=== PATIENT | female | born 1990 | race Caucasian/White ===

== ENCOUNTER 2020-01-06 10:11 | Outpatient (CLI) | payer MEDICAID ==
--- NOTE | 2020-01-06 11:36 | XRAY Report ---
Reason: LEFT FOOT PAIN Procedure Date: 01/06/2020 Accession Number: [id number] / [id number] Procedure: WCP - Foot 3 View LT CPT Code: Final Report FULL RESULT: PROCEDURE: Foot 3 View LT INDICATIONS: LEFT FOOT PAIN TECHNIQUE: 3 views of the foot were acquired. COMPARISON: None FINDINGS: Bones: No fractures or dislocations, but there is mild metatarsus primus varus and slight hallux valgus morphology of the first ray. Mild bunion formation at the medial first metatarsal head is incidentally noted.. No suspicious bony lesions. Soft tissues: No tibiotalar joint effusion. Achilles tendon appears normal. IMPRESSION: No acute disease, no trauma found. Mild podiatry related morphologic findings are present as discussed with mild bunion formation at the medial first metatarsal head. Reviewed by: Lukas Ivory MD on 01/06/2020 11:34 AM PDT Approved by: Lukas Ivory MD on 01/06/2020 11:34 AM PDT Station ID: [id number]
== END 2020-01-06 23:59 | disposition home or self-care (01) ==
LOC: DI.WCP 10:11
PROVIDERS: ATTEND Family Medicine
DX: M21.612 Bunion of left foot (principal); M20.12 Hallux valgus (acquired), left foot

== ENCOUNTER 2020-02-24 07:00 | Outpatient (CLI) | payer MEDICAID ==
[2020-02-24 16:21] LABS: MUDS CUTOFF CONCENTRATIONS CUTOFF CONC BELOW:
[2020-02-24 16:39] LABS: AMPHETAMINE SCREEN,URINE NEGATIVE (NEGATIVE); BENZODIAZEPINES SCREEN, URINE NEGATIVE (NEGATIVE); COCAINE SCREEN URINE NEGATIVE (NEGATIVE); METHADONE SCREEN, URINE NEGATIVE (NEGATIVE); METHAMPHETAMINES SCREEN, URINE NEGATIVE (NEGATIVE); OPIATE SCREEN, URINE NEGATIVE (NEGATIVE); OXYCODONE SCREEN, URINE NEGATIVE (NEGATIVE); PROPOXYPHENE SCREEN, URINE NEGATIVE (NEGATIVE); TRICYCLIC ANTIDEPRESSANT,URINE NEGATIVE (NEGATIVE)
== END 2020-02-24 07:01 | disposition home or self-care (01) ==
LOC: LAB.R 07:00
PROVIDERS: ATTEND Nurse Practitioner Obstetrics & Gynecology
DX: Z32.01 Encounter for pregnancy test, result positive (principal)
CPT/HCPCS: 80306; 80349; 81599

== ENCOUNTER 2020-03-13 08:16 | Outpatient (CLI) | payer MEDICAID ==
--- NOTE | 2020-03-13 12:16 | Ultrasound Report ---
PROCEDURE: OB First Trimester INDICATIONS: TEST POSITIVE OUTSIDE/PRIOR DATING DATA: Last menstrual period (LMP): 01/20/2020. LMP-based estimated date of delivery (KYLER): 10/26/2020. First dating scan (date and location): 03/13/2020. Estimated date of delivery (KYLER) from first dating scan: 10/24/2020. TECHNIQUE: Real-time scanning was performed of the fetus and maternal pelvic organs, with image documentation. COMPARISON: None available. FINDINGS: Embryo: Single intrauterine gestational sac is present. There is a pole with crown-rump length of 1.46 cm corresponding to an estimated gestational age of 7 weeks 6 days. heart rate is 162 bpm. A yolk sac is also present. Measurement variability in dating: +/- 4 weeks by LMP, +/- 7 days by mean sac diameter (use before 6 weeks gestation if crown-rump length not able to be measured), +/- 5 days by crown-rump length (6-12 weeks gestation). Maternal organs: The right ovary measures 2.9 x 2.8 x 2.3 cm. The left ovary measures 2.3 x 2.3 x 1.7 cm. A 1.9 cm corpus luteum follicle is present in the right ovary. Limited images through the kidney s demonstrate no hydronephrosis. IMPRESSION: Single living intrauterine . [place]-rump length measures 1.46 cm corresponding to an estimate d gestational age of 7 weeks 6 days. heart rate present at 162 bpm. Reviewed by: Jose Enrique Byrd on 03/13/2020 11:15 AM LUCAS Approved by: Jose Enrique Byrd on 03/13/2020 11:15 AM LUCAS Station ID: [id number]
== END 2020-03-13 08:17 | disposition home or self-care (01) ==
LOC: DI 08:16
PROVIDERS: ATTEND Nurse Practitioner Obstetrics & Gynecology
DX: Z32.01 Encounter for pregnancy test, result positive (principal)
CPT/HCPCS: 76801

== ENCOUNTER 2020-04-25 09:32 | Outpatient (CLI) | payer MEDICAID ==
[2020-04-25 09:51] LABS: MUDS CUTOFF CONCENTRATIONS CUTOFF CONC BELOW:
[2020-04-25 09:52] LABS: BILIRUBIN,URINE NEGATIVE (NEGATIVE); GLUCOSE, URINE (UA) NEGATIVE (NEGATIVE); KETONES,URINE (UA) NEGATIVE (NEGATIVE); LEUKOCYTE ESTERASE, URINE NEGATIVE (NEGATIVE); NITRITE,URINE NEGATIVE (NEGATIVE); OCCULT BLOOD,URINE NEGATIVE (NEGATIVE); PROTEIN,URINE NEGATIVE (NEGATIVE); UROBILINOGEN,URINE 0.2 (NORMAL) E.U./dL (NORMAL)
[2020-04-25 09:54] LABS: CLARITY,URINE HAZY (CLEAR)
[2020-04-25 09:56] LABS: BASOPHILS % (AUTO) 0.2 %; EOSINOPHILS % (AUTO) 0.2 %; HGB - HEMOGLOBIN 14.1 g/dL (12.0-16.0); LYMPHOCYTES # (AUTO) 1.4 10^3/uL (1.5-3.5); LYMPHOCYTES % (AUTO) 11.3 %; MEAN CORPUSCULAR HEMOGLOBIN 33.1 pg (27.0-31.0); MEAN CORPUSCULAR HGB CONC 34.6 g/dL (32.0-36.0); MEAN CORPUSCULAR VOLUME 95.5 fL (81.0-99.0); MONOCYTES # (AUTO) 0.6 10^3/uL (0.0-1.0); MONOCYTES % (AUTO) 4.6 %; NEUTROPHILS # (AUTO) 10.5 10^3/uL (1.5-6.6); NEUTROPHILS % (AUTO) 83.2 %; PLT - PLATELET COUNT 229 10^3/uL (130-450); RED BLOOD COUNT 4.26 10^6/uL (4.20-5.40); RED CELL DISTRIBUTION WIDTH 11.9 % (12.0-15.0); WHITE BLOOD COUNT 12.7 x10^3/uL (4.8-10.8)
[2020-04-25 10:00] LABS: BACTERIA,URINE Rare /HPF (None Seen); RBC,URINE None Seen /HPF (0-5); SQUAMOUS EPITHELIAL CELL,UR MANY Squamous (<= Few)
[2020-04-25 10:02] LABS: AMPHETAMINE SCREEN,URINE NEGATIVE (NEGATIVE); BENZODIAZEPINES SCREEN, URINE NEGATIVE (NEGATIVE); COCAINE SCREEN URINE NEGATIVE (NEGATIVE); METHADONE SCREEN, URINE NEGATIVE (NEGATIVE); METHAMPHETAMINES SCREEN, URINE NEGATIVE (NEGATIVE); OPIATE SCREEN, URINE NEGATIVE (NEGATIVE); OXYCODONE SCREEN, URINE NEGATIVE (NEGATIVE); PROPOXYPHENE SCREEN, URINE NEGATIVE (NEGATIVE); TRICYCLIC ANTIDEPRESSANT,URINE NEGATIVE (NEGATIVE)
[2020-04-25 10:03] LABS: INR 1.2 (0.8-1.2); PT - PROTHROMBIN TIME 13.6 secs (9.9-12.6)
[2020-04-26 10:11] LABS: HEPATITIS B SURFACE ANTIGEN NON-REACTIVE (NON-REACTIVE)
[2020-04-26 11:12] LABS: HEPATITIS C ANTIBODY NON-REACTIVE (NON-REACTIVE)
[2020-04-26 13:41] LABS: HIV AG/AB 4TH GEN NON-REACTIVE (NON-REACTIVE)
== END 2020-04-25 09:33 | disposition home or self-care (01) ==
LOC: LAB 09:32
PROVIDERS: ATTEND Advanced Practice Midwife
DX: Z34.90 Encounter for supervision of normal pregnancy, unspecified, unspecified trimester (principal)
CPT/HCPCS: 36415; 80306; 81001; 81599; 82746; 85025; 85610; 86592; 86762; 86787; 86803; 86850; 86900; 86901; 87086; 87340; 87389; 87491; 87591

== ENCOUNTER 2020-05-23 09:19 | Outpatient (CLI) | payer MEDICAID | END 2020-05-23 09:20 | disposition home or self-care (01) | LOC: LAB 09:19 | PROVIDERS: ATTEND Advanced Practice Midwife | DX: Z36.0 Encounter for antenatal screening for chromosomal anomalies (principal) | CPT/HCPCS: 36415; 81511; 81599 ==

== ENCOUNTER 2020-06-08 07:51 | Outpatient (CLI) | payer MEDICAID ==
--- NOTE | 2020-06-08 12:09 | Ultrasound Report ---
PROCEDURE: OB Detailed Eval INDICATIONS: SUPERVISION OF OUTSIDE/PRIOR DATING DATA: Last menstrual period (LMP): 01/20/2020. LMP-based estimated date of delivery (KYLER): 10/26/2020. First dating scan (date and location): 03/13/2020. Estimated date of delivery (KYLER) from first dating scan: 10/24/2020. TECHNIQUE: Real-time scanning was performed of the fetus, with image documentation and biometric measurements. Endovaginal scanning: Not performed COMPARISON: 03/13/2020 FINDINGS: General: A single living intrauterine gestation is present. Presentation: Breech Placenta: Placental position is posterior, without previa. Amniotic fluid index: 10.6 cm, normal for gestational age. heart rate: 144 beats per minute. Maternal cervical canal: 4.42 cm long; normal length is 2.5 cm or more. biometrics: Biparietal diameter: 4.3 cm, 19 weeks, 2 days Head circumference: 16.86 cm, 19 weeks, 4 days Abdominal circumference: 15.56 cm, 20 weeks, 5 days Femur length: 3.1 cm, 19 weeks, 5 days Estimated gestational age from initial scan: 20 weeks, 2 days Composite gestational age from present scan: 19 weeks, 6 days Estimated weight and percentile: 334 g, 52.5%. Measurement variability in biometric dating: +/- 10 days from 12-20 weeks gestation, +/- 2 weeks from 20-30 weeks gestation, +/- 3 weeks at 30 weeks gestation or later. Anatomic survey: Neuro: Ventricles are normal at less than 10 mm. Cisterna magna is normal at 3-11 mm. Cerebellum i s normal in size and morphology. Nuchal skin fold: Normal at less than 6 mm between 14 and 20 weeks gestational age. Face: Nose and lips, facial profile are normal. Spine: No evidence for spina bifida. Heart: 4-chambered heart is present, with normal ventricular outflow tracts. Diaphragm: Diaphragm is intact. Stomach: Left-sided stomach is present. Kidneys: No hydronephrosis. Normal is less than 5 mm in 2nd trimester, less than 7 mm in 3rd trimester. Cord: 3 vessel cord has orthotopic insertion. Bladder: Normal in size. Extremities: All 4 extremities are visualized. IMPRESSION: 1. Single live intrauterine with fetus in breech presentation. heart rate is 144 bpm. Normal amount of amniotic fluid. Normal growth. 2. Normal anatomic survey. Reviewed by: Mark Garcias MD on 06/08/2020 12:08 PM PST Approved by: Mark Garcias MD on 06/08/2020 12:08 PM PST Station ID: [id number]
== END 2020-06-08 07:52 | disposition home or self-care (01) ==
LOC: DI 07:51
PROVIDERS: ATTEND Advanced Practice Midwife
DX: Z34.92 Encounter for supervision of normal pregnancy, unspecified, second trimester (principal); Z36.89 Encounter for other specified antenatal screening

== ENCOUNTER 2020-07-26 07:43 | Outpatient (CLI) | payer MEDICAID ==
[2020-07-26 09:12] LABS: HGB - HEMOGLOBIN 12.3 g/dL (12.0-16.0); MEAN CORPUSCULAR HEMOGLOBIN 33.2 pg (27.0-31.0); MEAN CORPUSCULAR HGB CONC 34.7 g/dL (32.0-36.0); MEAN CORPUSCULAR VOLUME 95.4 fL (81.0-99.0); MEAN PLATELET VOLUME 9.2 fL (7.9-10.8); RED BLOOD COUNT 3.71 10^6/uL (4.20-5.40); RED CELL DISTRIBUTION WIDTH 12.1 % (12.0-15.0); WHITE BLOOD COUNT 10.1 x10^3/uL (4.8-10.8)
== END 2020-07-26 07:44 | disposition home or self-care (01) ==
LOC: LAB 07:43
PROVIDERS: ATTEND Advanced Practice Midwife
DX: Z34.90 Encounter for supervision of normal pregnancy, unspecified, unspecified trimester (principal); Z36.89 Encounter for other specified antenatal screening
CPT/HCPCS: 36415; 82950; 85027

== ENCOUNTER 2020-09-28 08:00 | Outpatient (CLI) | payer MEDICAID | END 2020-09-28 23:59 | disposition home or self-care (01) | LOC: LAB.R 08:00 | PROVIDERS: ATTEND Advanced Practice Midwife | DX: Z34.90 Encounter for supervision of normal pregnancy, unspecified, unspecified trimester (principal); Z36.85 Encounter for antenatal screening for Streptococcus B | CPT/HCPCS: 87797 ==

== ENCOUNTER 2020-10-10 07:42 | Inpatient (IN) | payer MEDICAID ==
[2020-10-10 08:12] LABS: RUPTURE OF MEMBRANES PLUS POSITIVE (NEGATIVE)
[2020-10-10] MEDS ORDERED: TRANEXAMIC ACID IN NACL 1,000 MG/100 ML BAG IV PRN (08:42)
[2020-10-10] MEDS ORDERED: LIDOCAINE-MPF 1% 30 ML VIAL ID PRN (08:42)
[2020-10-10] MEDS ORDERED: OXYTOCIN 10 UNIT/ML VIAL IM PRN (08:42)
[2020-10-10] MEDS ORDERED: CARBOPROST TROMETHAMINE 250 MCG/ML AMP IM PRN (08:42)
[2020-10-10] MEDS ORDERED: METHYLERGONOVINE 0.2 MG/ML VIAL IM PRN (08:42)
[2020-10-10] MEDS ORDERED: miSOPROStoL 200 MCG TABLET BC PRN (08:42)
[2020-10-10] MEDS ORDERED: ONDANSETRON 4 MG/2 ML VIAL IVP PRN ×2 (08:42→14:05)
[2020-10-10] MEDS ORDERED: OXYTOCIN/SODIUM CHLORIDE 500 ML IV PRN (08:42)
[2020-10-10] MEDS ORDERED: SODIUM CHLORIDE FLUSH 0.9% 10 ML SYRINGE IVP PRN (08:42)
[2020-10-10] MEDS ORDERED: LACTATED RINGERS 1,000 ML IV SCH (09:00)
[2020-10-10] MEDS ORDERED: SODIUM CHLORIDE FLUSH 0.9% 10 ML SYRINGE IVP SCH (09:00)
--- NOTE | 2020-10-10 09:02 | HISTORY & PHYSICAL EXAMINATION ---
Admit History - Visit Reason Visit Reason: Membranes rupture - : 2 Parity: 1 Premature: 0 Ectopic: 0 : 0 Care: positive: [facility] Risk/History: positive: None Complications This : positive: None Smoking Status: Former smoker - Mother's Labs Mother's Blood Type: positive: B Mother's RH: positive: Positive GBS: positive: Group B Step Negative Rubella Status: positive: Immune Meds/Allgy - Allergies Allergies/Adverse Reactions: Allergies Allergy/AdvReac Type Severity Reaction Status Date / Time keishaaristides mangos Allergy Intermediate Edema Uncoded 08/24/20 11:11 Review of Systems - Constitutional Constitutional: denies: Fever, Chills, Malaise - Eyes Eyes: denies: Blurred vision, Spots in vision, Dipolpia - Cardiovascular Cariovascular: denies: Irregular heart rate, Chest pain, Edema - Gastrointestinal Gastrointestinal: denies: Change in bowel habits, Nausea, Vomiting - Integumentary Integumentary: denies: Rash, Pruritis - Neurological Neurological: denies: Headache Physical - Abdominal Exam Vital Signs: Temp Pulse Resp BP Pulse Ox 36.8 C 61 16 134/66 H 100 10/10/20 08:10 10/10/20 08:10 10/10/20 08:10 10/10/20 08:10 10/10/20 08:10 Contraction Intensity: positive: Mild Uterine Resting Tone: positive: Soft - Monitoring Heart Rate Baseline: 130 Strip Review: positive: Category I - Presentation Presentation: positive: Vertex - Vaginal Exam Membranes: positive: Membranes ruptured Dilation (in cm): 3 Effacement (%): 80 Station: positive: -2 Cervical Position: positive: Posterior - Speculum Exam Speculum Exam Performed: positive: No Findings: positive: Gross leak, Nitrazine Plan for Labor - Plan For Labor I expect patient to be DC'd or transferred within 96 hours.: Yes Plan for Labor: Amna is a 30yo @ 37.5wks gestation by LMP c/w 7.4wk U/S who presents to [facility] with c/o vaginal leakage of fluid which began at 0609 this morning and is clear. She denies vaginal bleeding and reports +FM. Upon arrival she was noted to have grossly ruptured membranes with clear fluid. Nitrizine positive. FHR Category I. She reports mild cramping but nothing consistently uncomfortable. She has been a patient of [facility] through the duration of her which has remained uncomplicated. She will be admitted to [facility] for expectant management. She denies questions or concerns at this time. She is supported by her partner Mehran. Dating Criteria: LMP: KYLER by LMP 10/26/2020 Initial U/S c/w LMP dating Serial exams - agree Medications: PNV; Sertraline 50mg daily; proair PRN Allergies: NKDA; Mangos (moderate) OB Hx: G1: 08/26/2016, @ 40wks, epidural, Male, 7lb9oz G2: current PMHx: Exercise- induced bronchospasm, depression Surgical Hx: [place] teeth extraction (2014) Social Hx: Former smoker, no ETOH or IVDA. Partner Mehran. Family Hx: Thyroid disorder - sister course: Initial U/S: at 7.4wks c/w LMP for KYLER 10/26/2020 B pos/Rubella immune VZV- immune Gentic testing: QUAD- neg FAS: Posterior placenta. AZRA wnl. EFW 52.5%. 3VC Glucola- 119 Flu: declines TDAP 08/03/2020 GBS at 36.0- negative HSV: denies self and partner Breast pump Rx provided MOD: . Desires epidural abilio. FOB: Mehran. Son 3yo Fidel. Girl (she guessed it!) [place] October. Desires elective IOL 10/24/2020 @ 0800. pp contraception: Nexplanon PAP: 02/25/2018-wnl Physical Exam: Normocephalic, atraumatic Heart RRR w/o M/G/R Lungs CTAB Abdomen gravid, soft, nontender EFW 3600g FHR baseline 130, moderate variability, + accels, no decels Contractions palpate mild intermittently with soft resting tone SVE 3/80/-2, posterior. Vertex. Bilateral LE's trace edema Mood is good. Assessment: 30yo @ 37.5wks gestation by LMP c/w 7.4wk U/S Spontaneous rupture of membranes Early labor FHR Category I Plan: Admit to [facility] for active management. Initiate pitocin with titration per protocol. Continuous monitoring Jacuzzi PRN. Nitrous oxide PRN. Epidural per maternal request. Anticipate . Pt verbalized understanding and agrees to above plan. She denies further questions or concerns at this time.
[2020-10-10 09:14] LABS: BASOPHILS % (AUTO) 0.2 %; EOSINOPHILS # (AUTO) 0.1 10^3/uL (0.0-0.7); EOSINOPHILS % (AUTO) 0.4 %; HCT - HEMATOCRIT 35.4 % (37.0-47.0); HGB - HEMOGLOBIN 11.7 g/dL (12.0-16.0); LYMPHOCYTES # (AUTO) 1.4 10^3/uL (1.5-3.5); MEAN CORPUSCULAR HEMOGLOBIN 30.4 pg (27.0-31.0); MEAN CORPUSCULAR HGB CONC 33.1 g/dL (32.0-36.0); MEAN CORPUSCULAR VOLUME 91.9 fL (81.0-99.0); MEAN PLATELET VOLUME 9.9 fL (7.9-10.8); MONOCYTES # (AUTO) 0.6 10^3/uL (0.0-1.0); NEUTROPHILS # (AUTO) 9.4 10^3/uL (1.5-6.6); PLT - PLATELET COUNT 216 10^3/uL (130-450); RED BLOOD COUNT 3.85 10^6/uL (4.20-5.40); RED CELL DISTRIBUTION WIDTH 12.7 % (12.0-15.0); WHITE BLOOD COUNT 11.4 x10^3/uL (4.8-10.8)
[2020-10-10] MEDS: OXYTOCIN/SODIUM CHLORIDE 500 ML IV SCH ×2 (10:39→18:13)
[2020-10-10] MEDS ORDERED: fentaNYL 100 MCG/2 ML VIAL IVP PRN (13:29)
[2020-10-10] MEDS ORDERED: BUPIVACAINE 0.25% PF 10 ML VIAL ONE (13:31)
[2020-10-10] MEDS ORDERED: ROPIVACAINE 0.2% 200 MG/100 ML BAG EP ONE (13:32)
[2020-10-10] MEDS ORDERED: NALOXONE 0.4 MG/ML VIAL IVP PRN (14:05)
[2020-10-10] MEDS ORDERED: diphenhydrAMINE INJ 50 MG/ML VIAL IVP PRN (14:05)
[2020-10-10] MEDS ORDERED: ePHEDrine 50 MG/ML VIAL IVP PRN (14:05)
[2020-10-10] MEDS ORDERED: METOCLOPRAMIDE 10 MG/2 ML VIAL IVP PRN (14:05)
[2020-10-10] MEDS ORDERED: NALBUPHINE 10 MG/ML AMP IVP PRN (14:05)
[2020-10-10] MEDS ORDERED: ROPIVACAINE 0.2% 200 MG/100 ML BAG EP PRN (14:05)
--- NOTE | 2020-10-10 14:05 | ANESTHESIA ---
Pre-Anesthesia VS, & Labs - Diagnosis active labor - Procedure labor epidural Vital Signs: Temp Pulse Resp BP Pulse Ox 36.6 C 59 L 18 121/76 100 10/10/20 10:07 10/10/20 10:07 10/10/20 10:07 10/10/20 10:07 10/10/20 08:10 Height: 5 ft 5 in Weight (kg): 90.718 kg Body Mass Index: 33.3 BMI Classification: Obese - NPO >8 hours - Is Patient ?: Yes - Lab Results Current Lab Results: Laboratory Tests 10/10/20 09:05: WBC 11.4 H, RBC 3.85 L, Hgb 11.7 L, Hct 35.4 L, MCV 91.9, MCH 30.4, MCHC 33.1, RDW 12.7, Plt Count 216, MPV 9.9, Neut # (Auto) 9.4 H, Lymph # (Auto) 1.4 L, [place] # (Auto) 0.6, Eos # (Auto) 0.1, Baso # (Auto) 0.0, Absolute Nucleated RBC 0.00, Nucleated RBC % 0.0 Lab results reviewed: Yes Fish Bones: 10/10/20 09:05 Home Medications and Allergies Active Medications Carboprost Tromethamine (Carboprost Tromethamine 250 Mcg/Ml Amp) 250 mcg IM Q15M PRN PRN Reason: Step 4: Hemorrhage protocol Stop: 10/15/20 08:42 Fentanyl (Fentanyl 100 Mcg/2 Ml Vial) 50 mcg IVP Q1HR PRN PRN Reason: PAIN Lactated Ringer's (Lr) 1,000 mls @ 150 mls/hr IV .Q6H40M NEO Last Admin: 10/10/20 10:39 Dose: 125 mls/hr Documented by: Oxytocin/Sodium Chloride (Pitocin/Sodium Chloride) 500 mls @ 999 mls/hr IV PRN PRN; Protocol PRN Reason: POST- HEMORR PREVENTION Stop: 10/15/20 08:42 Tranexamic Acid (Tranexamic 1,000 Mg/100ml-Nacl) 1,000 mg in 100 mls @ 600 mls/hr IV .ONCE PRN PRN Reason: EBL >1200mL and within 3hr Stop: 10/15/20 08:42 Oxytocin/Sodium Chloride (Pitocin/Sodium Chloride) 500 mls @ 1 mls/hr IV TITR NEO; Protocol Last Titration: 10/10/20 12:26 Dose: 4 milliunit/min, 4 mls/hr Documented by: Lidocaine HCl (Lidocaine-Mpf 1% 30 Ml Vial) 30 ml ID .ONCE PRN PRN Reason: PERINEAL REPAIR Stop: 10/15/20 08:42 Methylergonovine Maleate (Methylergonovine 0.2 Mg/Ml Vial) 0.2 mg IM .ONCE PRN PRN Reason: Step 2: Hemorrhage protocol Stop: 10/15/20 08:42 Misoprostol (Misoprostol 200 Mcg Tablet) 800 mcg BC .ONCE PRN PRN Reason: Step 3: Hemorrhage protocol Stop: 10/15/20 08:42 Ondansetron HCl (Ondansetron 4 Mg/2 Ml Vial) 4 mg IVP Q4H PRN PRN Reason: Nausea / Vomiting Oxytocin (Oxytocin 10 Unit/Ml Vial) 10 unit IM .ONCE PRN PRN Reason: Step one: If no IV access Stop: 10/15/20 08:42 Sodium Chloride (Sodium Chloride Flush 0.9% 10 Ml Syringe) 10 ml IVP PRN PRN PRN Reason: NEEDED PER PROVIDER ORDERS Sodium Chloride (Sodium Chloride Flush 0.9% 10 Ml Syringe) 10 ml IVP 0100,0900,1700 [facility] Allergies/Adverse Reactions: Allergies Allergy/AdvReac Type Severity Reaction Status Date / Time lincolnacajocelin mangos Allergy Intermediate Edema Uncoded 08/24/20 11:11 Anes History & Medical History - Anesthetic History Anesthesia Complications: reports: No previous complications Family history of Anesthesia Complications: Denies Family history of Malignant Hyperthermia: Denies - Medical History Cardiovascular: reports: None Pulmonary: reports: None Gastrointestinal: reports: None Urinary: reports: None Smoking Status: Current some day smoker - Obstetrical History : 2 Parity: 1 Events: reports: None Complications: reports: None Exam General: Alert, Oriented x3, Cooperative, No acute distress Plan Anesthesia Type: Epidural Consent for Procedure(s) Verified and Reviewed: Yes Code Status: Attempt Resuscitation ASA classification: 2-Mild systemic disease Is this case an emergency?: No
[2020-10-10] MEDS ORDERED: HYDROCORTISONE 1% CREAM 28 GM TUBE PR PRN (16:04)
[2020-10-10] MEDS ORDERED: WITCH HAZEL/GLYCERIN 1 PAD TOP PRN (16:04)
--- NOTE | 2020-10-10 16:18 | DELIVERY NOTE ---
Delivery Note - Labor Labor: positive: Augmented by oxytocin - Delivery Method Delivery Method: positive: Spontaneous vaginal delivery - Presentation Presentation: positive: Vertex, Compound, SHANE - left occiput anterior - Nuchal Cord Nuchal Cord: positive: None - Amniotic Fluid Description Amniotic Fluid Description: positive: Clear - Episiotomy Type Episiotomy Type: positive: None - Laceration Laceration: positive: None - Delivery Outcome Delivery Outcome: positive: Livebirth - Robeline Robeline: positive: Placed in direct skin contact with mother, Bulb syringe, Stimulated, Warmed, [place] used sex: positive: Female - Cord Cord: positive: 3 vessels - Placenta Placenta: positive: Intact, Spontaneous - Estimated Blood Loss Estimated Blood Loss (in cc): 200 - Post Delivery Events Post Delivery Events: positive: No post delivery events - Delivery Comments (Free Text/Narrative) Delivery Comments (Free Text/Narrative): Labor: This 30yo @ 37.5wks gestation by LMP c/w first trimester ultrasound presented to [facility] on 10/10/2020 with c/o grossly ruptured membranes which occurred at 0609 and was noted to be a large amount of clear fluid. She was intermittently pedro without associated discomfort. SVE 3/80/-2, posterior and vertex. FHR Category I pattern throughout labor. Pitocin initiated for labor augmentation for a maximum infusion rate of 6mU/mL. Normal labor course. Epidural placed per maternal request. Pt progressed to c/c/+2 @ 1531. : Normal of viable female on 10/10/2020 @ 1548. No nuchal cord. Compound right hand. The was placed on maternal abdomen, stimulated, dried, and placed skin to skin. 's 9/9 at 1 and 5 min respectively. Pitocin administered via IV for hemostasis. The umbilical cord was allowed to stop pulsating at which time it was doubly clamped by CNM and cut by FOB. 3VC. Cord blood was obtained. Fundal massage and gentle cord traction applied for active management of the third stage. Placenta delivered spontaneously and intact @ 1551. EBL 200mL. Fourth stage: Uterine fundus firm and there is no excessive bleeding. The perineum, vagina, and cervix were inspected and found to be intact. initiated. Family bonding well. Both mother and baby were left in stable condition.
[2020-10-10] MEDS: ACETAMINOPHEN 500 MG TABLET PO SCH (19:01)
[2020-10-10] MEDS: IBUPROFEN 800 MG TABLET PO SCH (19:02)
[2020-10-10] MEDS: DOCUSATE SODIUM 100 MG CAPSULE PO SCH (21:17)
[2020-10-11] MEDS: IBUPROFEN 800 MG TABLET PO SCH ×3 (01:19→13:39)
[2020-10-11] MEDS: ACETAMINOPHEN 500 MG TABLET PO SCH ×2 (04:11→12:32)
--- NOTE | 2020-10-11 06:29 | PROVIDER PROGRESS NOTE ---
Subjective - Subjective Subjective: S: Bonding well with baby. without difficulty. Bleeding decreased and light. Pain well controlled with oral medications. Urinating without difficulty. Was able to get a little rest last night and is feeling good today. Partner Mehran is supportive at the bedside. O: BP 138/74, T 36.8, HR 60, RR 18 Heart RRR w/o M/G/R, lungs CTAB, abdomen soft and nontender with fundus firm at U, light lochia rubra, bilateral LE's trace edema. A: 30yo -->P2 PPD#1 s/p TSVD viable female infant perineum intact P: Reviewed pp self care and warning s/sx. Pt has emergency contact number. Advised continuation of PNV while . Continue taking ibuprofen and tylenol OTC as needed for pain management. F/u in 1 week for routine pp visit or sooner PRN. Pt verbalized understanding and agrees to above plan. She denies further questions or concerns at this time. Objective - Vital Signs/Intake & Output Vital Signs: Vital Signs x48h Temp Pulse Resp BP Pulse Ox 10/11/20 04:30 36.8 C 60 18 130/74 100 10/11/20 01:00 36.7 C 60 18 132/71 H 100 Intake & Output: Intake & Output 10/08/20 10/09/20 10/10/20 10/11/20 23:59 23:59 23:59 23:59 Intake Total 2049.733 Output Total 1600 Balance 449.733 - Lab Results Fish Bones: 10/10/20 09:05 Other Labs: Lab Results x24hrs 10/10/20 10/10/20 Range/Units 09:05 08:05 WBC 11.4 H (4.8-10.8) x10^3/uL RBC 3.85 L (4.20-5.40) 10^6/uL Hgb 11.7 L (12.0-16.0) g/dL Hct 35.4 L (37.0-47.0) % MCV 91.9 (81.0-99.0) fL MCH 30.4 (27.0-31.0) pg MCHC 33.1 (32.0-36.0) g/dL RDW 12.7 (12.0-15.0) % Plt Count 216 (130-450) 10^3/uL MPV 9.9 (7.9-10.8) fL Neut # (Auto) 9.4 H (1.5-6.6) 10^3/uL Lymph # (Auto) 1.4 L (1.5-3.5) 10^3/uL [place] # (Auto) 0.6 (0.0-1.0) 10^3/uL Eos # (Auto) 0.1 (0.0-0.7) 10^3/uL Baso # (Auto) 0.0 (0.0-0.1) 10^3/uL Absolute Nucleated RBC 0.00 x10^3/uL Nucleated RBC % 0.0 /100WBC Membranes Rupture POSITIVE A (NEGATIVE)
--- NOTE | 2020-10-11 06:45 | Discharge Plan ---
Discharge Plan Problem Reviewed?: Yes Disposition: Home, Self Care Condition: Good Diet: Regular Activity Restrictions: No Restrictions Shower Restrictions: No Driving Restrictions: No Weight Bearing: Full Weight No Smoking: If you smoke, Please STOP! Call for help. Follow-up with: Carolyn Flannery CNM, ARNP [Provider Admit Priv/Credential] -
--- NOTE | 2020-10-11 06:51 | DISCHARGE SUMMARY ---
Discharge Summary Admit Date: 10/10/20 Discharge Date: 10/11/20 Discharging Provider: Carolyn Flannery CNM/EDGARDO Condition at Discharge: Good Discharge Disposition: 01 Home, Self Care - DIAGNOSES Admission Diagnoses: 1. 30yo @ 37.5wks gestation 2. Spontaneous rupture of membranes 3. Early labor 4. GBS neg 5. FHR Category I Discharge Diagnoses with Status of Each Condition: 1. A 30yo s/p TSVD on 10/10/2020 2. Normal recovery 3. - ALLERGIES Allergies/Adverse Reactions: Allergies Allergy/AdvReac Type Severity Reaction Status Date / Time manas rossi Allergy Intermediate Edema Uncoded 08/24/20 11:11 - LABS Result Diagrams: 10/10/20 09:05 - FOLLOW UP Follow Up: Brief History: She is patient of [facility] who presented on 10/10/2020 with complaints of spontaneous rupture of membranes. The patient was noted to 3/80/-2 and Vertex. She was augmented with pitocin. She progressed to spontaneously deliver a viable female infant named Soco Fabian on 10/10/2020 @ 0348. Apgars were 9/9 at 1 and 5 min respectively. EBL 200mL. The patient perineum, vagina, and cervix were inspected and noted to be intact. She has been doing well in her course. She is ambulating and tolerating a regular diet. She is urinating without difficulty and her lochia is normal. Her pain is well controlled with oral medications. She will be discharged home today on day #1 with instructions to continue taking her PNV while and to continue taking ibuprofen and tylenol OTC as needed for pain management. She intends to f/u with myself at [facility] in 1 week for routine visit or sooner PRN. She has been given precautions to call if she has any worsening fevers, chills, abdominal pain, increased bleeding, or foul smelling vaginal lochia.
[2020-10-11] MEDS: DOCUSATE SODIUM 100 MG CAPSULE PO SCH (07:35)
[2020-10-11 16:20] VITALS: BP 120/76
--- NOTE | 2020-10-11 19:21 | Labor Flowsheet ---
Labor Flowsheet Datetime Report Generated by CPN: 10/11/2020 19:21 Datetime: 10/11/2020 07:26 VITAL SIGNS NBP Sys/Juana/Mean (mmHg): 117 : 64 : 76 Pulse: 54 Datetime: 10/10/2020 18:00 Stage of : Recovery Datetime: 10/10/2020 15:51 Temperature (C): 36.7 Stage 2 Comments: Placenta Datetime: 10/10/2020 15:48 Pushing Position: Pushing with Contractions Pushing Progress: Descent with Pushing Datetime: 10/10/2020 15:43 LaborFlag: Labor Datetime: 10/10/2020 15:40 STAGE 2 Pushing: Coached on Pushing; No Urge to Push Datetime: 10/10/2020 15:31 VAGINAL EXAM Dilatation (cm): 10.0 Station: 2 Exam by: AD Datetime: 10/10/2020 15:14 SpO2 (%): 100 Datetime: 10/10/2020 15:00 UTERINE ACTIVITY Monitor Mode: External Frequency (min): 2-3 Quality: Mild Duration (sec): 40-60 Pattern: Normal: <= 5 Contractions in 10 Minutes Resting Tone (Palpate): Relaxed Pitocin Checklist: Uterus Palpates Soft between Contractions ASSESSMENT A Monitor Mode: Telemetry FHR Baseline Rate : 125 FHR Baseline Changes: No Baseline Change Variability: Moderate 6-25 bpm Accelerations: 15X15 Decelerations: None Category: Category I Oxygen Method: Room Air Datetime: 10/10/2020 14:41 MEDICATIONS Pitocin (milliunits): Increased to @ 6mu Datetime: 10/10/2020 14:38 I/O Interventions: [place] Cath Inserted Datetime: 10/10/2020 14:30 Monitor Interventions for UA: [place] Adjusted Datetime: 10/10/2020 14:00 Anesthesia Level Check: T10- Umbilicus Datetime: 10/10/2020 13:42 Epidural Procedure: Test Dose Datetime: 10/10/2020 13:40 PROCEDURE TIME OUT Procedure Verify: Correct Patient Identity; Correct Side and Site are Marked; Accurate Procedure Co nsent Form; Agreement on Procedure to be Done; Correct Patient Position ANESTHESIA Anesthesia Plans: Epidural Epidural Positioning: Sitting Datetime: 10/10/2020 13:35 Analgesics/Sedatives: Fentanyl (mcg) @ 50 Medication Comments: Fentanyl given per anesthesia provider Datetime: 10/10/2020 13:30 Contraction Comments: Pt c/o ctx pain Pain Coping: Requesting Pain Medication or Epidural Datetime: 10/10/2020 13:28 Anesthesia Comments: anesthesia here for epidural Datetime: 10/10/2020 13:06 COMMUNICATION Communication: Report Given to @ Inez Aube, TRAVEL INSURANCE AGENT Communication Comments: Provider notified that patient desires an epidural Datetime: 10/10/2020 13:03 PATIENT CARE IV/Blood Work: IV Bolus Started Datetime: 10/10/2020 13:00 Monitor Interventions for FHR: Ultrasound Adjusted Datetime: 10/10/2020 12:30 PAIN Pain Scale: 3 Pain Presence: Intermittent Pain Type: Cramping Pain Location: Abdomen; Back Datetime: 10/10/2020 12:01 Patient Care Comments: Pt out of jacuzzi Datetime: 10/10/2020 12:00 Comments: Pt is in jacuzzi tub Datetime: 10/10/2020 09:57 Effacement (%): 75 Vaginal Bleeding: None Cervix, Consistency: Soft Cervix, Position: Posterior Datetime: 10/10/2020 09:43 Provider Reviewed Strip: Yes Datetime: 10/10/2020 09:17 Patient Position/Activity: Semi-Fowlers
--- NOTE | 2020-10-14 08:37 | PROCEDURE REPORT ---
- HPI Diagnosis/Indication for NST: Other Current EDU 10/26/20 Gestation 37 Weeks and 5 Days 2 Para 1 Vital Signs Temperature 36.8 C 10/10/20 08:00 Heart Rate 61 10/10/20 08:00 Respiratory Rate 16 10/10/20 08:00 Blood Pressure 134/66 H 10/10/20 08:00 O2 Saturation 100 10/10/20 08:00 Temperature 36.6 C 10/11/20 16:19 Heart Rate 58 L 10/11/20 16:19 Respiratory Rate 18 10/11/20 16:19 Blood Pressure 120/76 10/11/20 16:19 O2 Saturation 99 10/11/20 16:19 - NST Procedure NST Procedure Start Date 10/10/20 Start Time 07:50 Stop Time 08:25 Vibroacoustic Stimulation Used No Patient States Movement Yes - Results and Plan Plan: NST performed 10/10/2020 NST read 10/10/2020 NST reactive. FHR baseline 130s, moderate variability, + accels, no decels
== END 2020-10-11 17:30 | disposition home or self-care (01) | DRG 807 ==
LOC: WFO 07:42 → FBP 07:45 → WFO 08:41 → FBP 08:42
PROVIDERS: ADMIT Nurse Practitioner Obstetrics & Gynecology; ATTEND Nurse Practitioner Obstetrics & Gynecology
PROC: 10E0XZZ Delivery of Products of Conception, External Approach (ICD-10-PCS; principal; 2020-10-10)
DX: O32.6XX0 Maternal care for compound presentation, not applicable or unspecified (principal); Z37.0 Single live birth; Z3A.37 37 weeks gestation of pregnancy; O99.214 Obesity complicating childbirth; E66.9 Obesity, unspecified
CPT/HCPCS: 36415; 59025; 84112; 85025; 99213; A9270; J7120

== ENCOUNTER 2023-05-08 12:33 | Outpatient (CLI) | payer MEDICAID ==
--- NOTE | 2023-05-09 13:09 | Mammography Report ---
BILATERAL DIGITAL DIAGNOSTIC MAMMOGRAM 3D/2D WITH AXILLARY TAIL LATEROMEDIAL: 05/08/2023 CLINICAL: Baseline exam. Palpable left lump in axilla. No prior exams were available for comparison. Both breasts are extremely dense, which lowers the sensitivity of mammography (category d />75% gland ular tissue). No significant masses, calcifications, or other findings are seen in either breast. IMPRESSION: INCOMPLETE: NEEDS ADDITIONAL IMAGING EVALUATION There is no abnormality seen to correspond with the area of clinical concern in the left axilla, jean enrrique, ultrasound is recommended. Based on the Tyrer Cuzick model (a risk assessment model) the patients lifetime risk is 18.8% and he r 10 year risk is 0.8%. According to the ACR, ACS, and NCCN guidelines, an annual breast MRI exam maría elena ng with mammogram is recommended if the patients lifetime risk is 20% or greater. This exam was interpreted at Station ID: [id number]. NOTE: For mammograms, a report in lay terms will be sent to the patient. Approximately 15% of breast malignancies will not be visualized mammographically. In the management of a palpable breast mass, a negative mammogram must not discourage biopsy of a clinically suspicious lesion. Electronically Signed By: Juan Green M.D. lc/:05/08/2023 13:54:46 ACR BI-RADS Category 0: Incomplete 3340F PARENCHYMAL PATTERN: (VD) - The breast(s) demonstrate(s) extremely dense parenchyma, limiting the sen sitivity of mammography. BI-RADS CATEGORY: (0) - 0 Ultrasound [id number] Immediate follow-up LATERALITY: (B)
--- NOTE | 2023-05-09 13:09 | Ultrasound Report ---
LIMITED ULTRASOUND OF LEFT BREAST: 05/08/2023 CLINICAL: Palpable left axilla lump. Comparison is made to exam dated: 05/08/2023 mammogram - [facility]. Color flow ultrasound of the left breast was performed. Coleman scale images of the real-time examinat ion were reviewed. At the first palpable area in the left axilla, possible 1 x 0.1cm complicated, possibly sebaceous, sk in-based cyst noted. No sonographic abnormality in the second palpable region in the left axilla. IMPRESSION: BENIGN At the first palpable area in the left axilla, possible 1 x 0.1cm complicated, possibly sebaceous, sk in-based cyst noted. No sonographic abnormality in the second palpable region axilla. Clinical follow up recommended. No sonographic evidence of breast malignancy or lymphadenopathy. This exam was interpreted at Station ID: [id number]. Electronically Signed By: Juan Green M.D. lc/:05/08/2023 13:56:36 Ultrasound BI-RADS: 2 Benign BI-RADS CATEGORY: (2) - 2 Unspecified - other recall n/a LATERALITY: (B)
== END 2023-05-08 12:34 | disposition home or self-care (01) ==
LOC: DI 12:33
PROVIDERS: ATTEND Family Medicine
DX: N63.32 Unspecified lump in axillary tail of the left breast (principal); R92.343 Mammographic extreme density, bilateral breasts